=== PATIENT | female | born 1950 | race Caucasian/White ===

== ENCOUNTER → 2017-11-26 | Outpatient (CLI) | payer MEDICARE, OTHER ==
[~2017-11-26] MED LIST: ACET325 PO; ATOR40TA PO; Aspirin EC81 MG PO; BENADRYL25 MG PO; CHOL10002 PO; CLOP75 PO; FISH1000 PO; Flecainide Acet50 MG PO; LORA10 PO; LOSA50 PO; METO25 PO; MONT10T PO; Multiple Vitam1 EAC1 PO; OMEPRAZOLE MAGN20 MG PO
== END | disposition home or self-care (01) ==
LOC: LAB SHORT 11:50 → LAB EV 11:50
DX: R30.0 Dysuria (principal)
CPT/HCPCS: 87077; 87086; 87186

== ENCOUNTER → 2017-12-12 | Outpatient (CLI) | payer MEDICARE, OTHER | LOC: LAB SHORT 11:29 → LAB EV 11:29 | DX: N39.0 Urinary tract infection, site not specified (principal) | CPT/HCPCS: 87077; 87086; 87186 ==

== ENCOUNTER → 2018-11-28 | Outpatient (CLI) | payer MEDICARE, OTHER | LOC: LAB SHORT 10:42 → LAB EV 10:42 | DX: B00.9 Herpesviral infection, unspecified (principal) | CPT/HCPCS: 87529 ==

== ENCOUNTER 2019-08-09 10:33 | Day surgery (SDC) | payer MEDICARE, OTHER ==
[~2019-08-09] VITALS: Ht 170.2 cm; Wt 100.1 kg
[2019-08-09] MEDS ORDERED: ELIQUIS5 MG PO (11:30)
[2019-08-09] MEDS ORDERED: GABA300 PO (11:31)
[2019-08-09] MEDS ORDERED: VALACYCLOVIR1000 MG PO (11:32)
== END 2019-08-09 12:20 | disposition home or self-care (01) ==
LOC: ORSCSDS 10:33
PROVIDERS: Internal Medicine Gastroenterology
PROC: 0D758ZZ Dilation of Esophagus, Via Natural or Artificial Opening Endoscopic (ICD-10-PCS; principal; 2019-08-09 12:00)
PROC: 0DB58ZX Excision of Esophagus, Via Natural or Artificial Opening Endoscopic, Diagnostic (ICD-10-PCS; principal; 2019-08-09 12:00)
PROC: 0DB68ZX Excision of Stomach, Via Natural or Artificial Opening Endoscopic, Diagnostic (ICD-10-PCS; principal; 2019-08-09 12:00)
DX: R13.10 Dysphagia, unspecified (principal); K22.2 Esophageal obstruction; K21.0 Gastro-esophageal reflux disease with esophagitis; I25.10 Atherosclerotic heart disease of native coronary artery without angina pectoris; I48.0 Paroxysmal atrial fibrillation; G47.33 Obstructive sleep apnea (adult) (pediatric); I10 Essential (primary) hypertension; E78.5 Hyperlipidemia, unspecified; Z87.891 Personal history of nicotine dependence; Z79.01 Long term (current) use of anticoagulants; Z79.899 Other long term (current) drug therapy
CPT/HCPCS: 88305; 88342; J2250; J2704; J7120

== ENCOUNTER → 2020-06-10 | Outpatient (CLI) | payer MEDICARE, OTHER ==
[~2020-06-10] MED LIST changes: +ELIQUIS5 MG PO; +GABA300 PO; +VALACYCLOVIR1000 MG PO
[2020-06-10 13:06] LABS: Bacteria Rare /hpf; Red Blood Cells, Urine Not Seen /hpf (0-2); Squamous Epithelial Cells Rare /hpf (Few)
== END ==
LOC: LAB SHORT 12:30 → LAB 12:30
PROVIDERS: Physician Assistant
DX: R30.9 Painful micturition, unspecified (principal)
CPT/HCPCS: 81015; 87086

== ENCOUNTER → 2020-07-29 | Outpatient (CLI) | payer MEDICARE, OTHER ==
[2020-07-30 16:22] LABS: CORONAVIRUS (COVID19) CSH-NRL Positive (Negative)
== END ==
LOC: LAB SHORT 09:25 → LAB 09:25
PROVIDERS: Family Medicine
DX: U07.1 COVID-19 (principal)
CPT/HCPCS: U0003

== ENCOUNTER 2020-11-27 09:11 | Day surgery (SDC) | payer MEDICARE, OTHER ==
[~2020-11-27] VITALS: Wt 101.6 kg
== END 2020-11-27 11:27 | disposition home or self-care (01) ==
LOC: ORSCSDS 09:11
PROVIDERS: Internal Medicine Gastroenterology
PROC: 0DBL8ZX Excision of Transverse Colon, Via Natural or Artificial Opening Endoscopic, Diagnostic (ICD-10-PCS; principal; 2020-11-27 10:45)
PROC: 0DBP8ZX Excision of Rectum, Via Natural or Artificial Opening Endoscopic, Diagnostic (ICD-10-PCS; principal; 2020-11-27 10:45)
PROC: 0DBH8ZX Excision of Cecum, Via Natural or Artificial Opening Endoscopic, Diagnostic (ICD-10-PCS; principal; 2020-11-27 10:45)
PROC: 0DBM8ZX Excision of Descending Colon, Via Natural or Artificial Opening Endoscopic, Diagnostic (ICD-10-PCS; principal; 2020-11-27 10:45)
DX: Z12.11 Encounter for screening for malignant neoplasm of colon (principal); Z86.010 Personal history of colon polyps; D12.0 Benign neoplasm of cecum; D12.3 Benign neoplasm of transverse colon; K63.5 Polyp of colon; K62.1 Rectal polyp; K57.30 Diverticulosis of large intestine without perforation or abscess without bleeding; K64.1 Second degree hemorrhoids; K21.9 Gastro-esophageal reflux disease without esophagitis; G47.33 Obstructive sleep apnea (adult) (pediatric); I48.0 Paroxysmal atrial fibrillation; Z79.01 Long term (current) use of anticoagulants; I25.10 Atherosclerotic heart disease of native coronary artery without angina pectoris; Z79.899 Other long term (current) drug therapy; I10 Essential (primary) hypertension; E78.5 Hyperlipidemia, unspecified; J45.909 Unspecified asthma, uncomplicated
CPT/HCPCS: 82947; 88305; A9270; J2704; J7120

== ENCOUNTER → 2022-10-15 | Outpatient (CLI) | payer MEDICARE, OTHER | END | disposition home or self-care (01) | LOC: LAB SHORT 09:55 → LAB 09:55 | DX: J20.9 Acute bronchitis, unspecified (principal); J45.909 Unspecified asthma, uncomplicated | CPT/HCPCS: 87070; 87205 ==

== ENCOUNTER 2023-09-09 11:20 | Emergency (ER) | payer MEDICARE, OTHER ==
[~2023-09-09] VITALS: Ht 170.2 cm; Wt 93.9 kg
[2023-09-09] MEDS ORDERED: HYDACE10B PO (16:24)
== END 2023-09-09 17:17 | disposition home or self-care (01) ==
LOC: ER 11:20
DX: S52.352A Displaced comminuted fracture of shaft of radius, left arm, initial encounter for closed fracture (principal); Z87.891 Personal history of nicotine dependence; Z79.01 Long term (current) use of anticoagulants; Z79.899 Other long term (current) drug therapy; Z88.0 Allergy status to penicillin; Z88.1 Allergy status to other antibiotic agents; Z88.8 Allergy status to other drugs, medicaments and biological substances; Z91.048 Other nonmedicinal substance allergy status; W11.XXXA Fall on and from ladder, initial encounter
CPT/HCPCS: 25605; 70450; 73100; 73110; 96374-59; 96375-59; 96376-59; 99284-25; J1170; J1885; J3010

== ENCOUNTER 2023-09-14 10:48 | Day surgery (SDC) | payer MEDICARE, OTHER ==
[~2023-09-14] VITALS: Ht 170.2 cm; Wt 96.0 kg
[2023-09-14] VITALS (18 sets, daily range): BP systolic 132–194; BP diastolic 48–86
[~2023-09-14 10:48] MED LIST changes: +HYDACE10B PO
[2023-09-14] MEDS ORDERED: GABA300 ×2 (11:32→11:33)
[2023-09-14] MEDS ORDERED: METF500 PO (11:36)
[2023-09-14] MEDS ORDERED: ASAMANEX INH (11:38)
[2023-09-14] MEDS ORDERED: DESV50 (11:39)
[2023-09-14] MEDS ORDERED: MELATONIN5 M1 (11:40)
--- NOTE | 2023-09-14 11:49 | NUR ---
Ambulatory in Day SurgeryPre-Op teaching done. Pt verbalizes understanding. History, Chart, Medications and Allergies reviewed before start of procedure.Patient confirms NPO status and agrees with scheduled surgery. Patient States Post-Procedure ride home has been arranged.
--- NOTE | 2023-09-14 16:37 | NUR ---
PT TOLERATED APPLE SAUCE AND WATER, GAVE PO PAIN MED PER ORDER, ICE TO LEFT WRIST ABBEY WRAP, ABLE TO WIGGLE ALL FINGERS, CAP REFILL LESS THAN THREE SECONDS, RIDE WILL BE HERE AT APPROX 1730.
--- NOTE | 2023-09-14 17:29 | NUR ---
Discharge instructions reviewed with patient. Patient verbalizes understanding. Copy given to patient to take home. PT DRESSED. ABBEY WRAP C/D/I, CAP REFILL LESS THAN 3 SEC TO ALL LEFT FINGERS, FINGERS WARM AND ABLE TO WIGGLE. PT HAS SLING ON, ICE PACK TO GO HOME W/PT, HAS BEEN USING 20 MIN ON 20 MIN OFF. PT AMBULATED TO VOID. AWAITING RIDE HOME, ON THE WAY.
--- NOTE | 2023-09-14 17:54 | NUR ---
PT RIDE HERE, Discharged via wheelchair to private car for ride home.
== END 2023-09-14 22:48 | disposition home or self-care (01) ==
LOC: ORD 10:48 → ORSCMMR 10:48 → ORD 22:48
PROVIDERS: Orthopaedic Surgery Sports Medicine
PROC: 0PSJ04Z Reposition Left Radius with Internal Fixation Device, Open Approach (ICD-10-PCS; principal; 2023-09-14 12:30)
DX: S52.572A Other intraarticular fracture of lower end of left radius, initial encounter for closed fracture (principal); W11.XXXA Fall on and from ladder, initial encounter; J45.909 Unspecified asthma, uncomplicated; I48.91 Unspecified atrial fibrillation; Z79.01 Long term (current) use of anticoagulants; I10 Essential (primary) hypertension; K21.9 Gastro-esophageal reflux disease without esophagitis; E11.9 Type 2 diabetes mellitus without complications; G47.33 Obstructive sleep apnea (adult) (pediatric); Z79.899 Other long term (current) drug therapy
CPT/HCPCS: 82947; A9270; C1713; J0690; J1100; J1170; J1885; J2405; J2704; J3010; J7120

== ENCOUNTER 2024-10-23 14:07 | Inpatient (IN) | payer MEDICARE, OTHER ==
[~2024-10-23] VITALS: Ht 170.2 cm; Wt 98.6 kg
[~2024-10-23 14:07] MED LIST changes: -ALBU3IS INH; -AMIODARONE HCL200 M1 PO; -ASMANEX INH; -ATORVASTATIN CA80 M1 PO; -DESVENLAFAXINE50 MG PO; -ELIQUIS5 M2 PO; -FURO20 PO; -Glucophage 500 mg PO; -LOSARTAN POTAS100 M1 PO; -METO25ER PO; -VALACYCLOVIR 1 GM PO
[2024-10-23] MEDS ORDERED: Lactated Ringer's 1,000 ML IV SCH (15:55)
[2024-10-23] MEDS ORDERED: Cefepime HCl 2,000 MG in NS 100 ML IV ONE (15:55)
[2024-10-23 16:13] LABS: Hematocrit 29.3 % (33.0-51.0); Hemoglobin 9.9 g/dL (11.5-16.0); Mean Corpuscular HGB 31.1 pg (26.0-34.0); Mean Corpuscular HGB Conc 33.8 g/dL (31.5-36.5); Mean Corpuscular Volume 92 fL (80-100); Mean Platelet Volume 9.4 fL (9.1-12.4); NRBC ABSOLUTE 0.02 K/mm3 (0.00-0.02); NRBC Auto 0.1 /100 WBC (0.0-0.2); Platelet Count 266 K/mm3 (150-400); RDW Coefficient Variation 13.8 % (11.7-14.2); RDW Standard Deviation 47.6 fL (35.1-46.3); Red Blood Cell Count 3.18 M/mm3 (3.80-5.20); White Blood Cell Count 16.11 K/mm3 (4.00-11.30)
[2024-10-23 16:27] LABS: Magnesium, Blood 1.2 mg/dL (1.6-2.4)
[2024-10-23 16:28] LABS: Albumin, Blood 2.4 g/dL (3.4-5.0); Albumin/Globulin Ratio 0.6 (0.8-1.8); Bilirubin, Total 0.9 mg/dL (0.1-1.0); Bun/Creatinine Ratio 32.1 (12.0-20.0); Calcium, Blood 8.2 mg/dL (8.5-10.1); Creatinine, Blood 0.87 mg/dL (0.40-1.00); Globulin, Blood 4.3 g/dL (2.2-4.0); Potassium, Blood 3.3 mmol/L (3.5-5.5); Total Protein, Blood 6.7 g/dL (6.4-8.2)
[2024-10-23 16:45] LABS: BAND PERCENT MAN 13 % (0-8); BASOPHILS PERCENT MAN 0 % (0-2); EOSINOPHILS PERCENT MAN 0 % (0-6); LYMPHOCYTES ABSOLUTE MAN 1.12 K/mm3 (0.84-5.20); LYMPHOCYTES PERCENT MAN 7 % (21-46); MONOCYTES ABSOLUTE MAN 0.48 K/mm3 (0.16-1.47); MONOCYTES PERCENT MAN 3 % (4-13); NEUTROPHILS ABSOLUTE MAN 14.49 K/mm3 (1.96-9.15); SEG NEUTROPHILS PERCENT MAN 77 % (41-73); TOTAL CELLS COUNTED 100
[2024-10-23] MEDS ORDERED: Magnesium Hydroxide Conc 10 ML UDC PO PRN (17:25)
[2024-10-23] MEDS ORDERED: FLU VACC TS2024-25(6MOS UP)/PF 45 MCG/0.5 ML SYRINGE IM SCH (17:25)
[2024-10-23] MEDS ORDERED: Ondansetron HCl 2 MG / ML 2ML Vial IV PRN (17:25)
[2024-10-23] MEDS ORDERED: NS 1,000 ML IV SCH (17:25)
[2024-10-23] MEDS ORDERED: Albuterol 2.5 MG/3 ML VIAL INH SCH (17:35)
[2024-10-23] MEDS ORDERED: ALBU3IS INH (17:36)
[2024-10-23] MEDS ORDERED: Potassium Phosphate Dibasic 20 MM in Dextrose 5% 500 ML IV STA (17:36)
[2024-10-23] MEDS ORDERED: AMIODARONE HCL200 M1 PO (17:37)
[2024-10-23] MEDS ORDERED: ELIQUIS5 M2 PO (17:38)
[2024-10-23] MEDS ORDERED: ATORVASTATIN CA80 M1 PO (17:39)
[2024-10-23] MEDS ORDERED: CLOP75 PO (17:40)
[2024-10-23] MEDS ORDERED: Mometasone Furoate Inhaler 220 mcg 14 ACT INH SCH (17:40)
[2024-10-23] MEDS ORDERED: DESVENLAFAXINE50 MG PO (17:41)
[2024-10-23] MEDS ORDERED: FURO20 PO (17:42)
[2024-10-23] MEDS ORDERED: GABA300 PO (17:43)
[2024-10-23] MEDS ORDERED: LOSARTAN POTAS100 M1 PO (17:43)
[2024-10-23] MEDS ORDERED: Magnesium Sulf 2 GM/Water 50ML 50 ML IV ONE (17:45)
[2024-10-23] MEDS ORDERED: Glucophage 500 mg PO (17:45)
[2024-10-23] MEDS ORDERED: METO25ER PO (17:46)
[2024-10-23] MEDS ORDERED: ASMANEX INH (17:47)
[2024-10-23] MEDS ORDERED: MONT10T PO (17:48)
[2024-10-23] MEDS ORDERED: OMEP20ER PO (17:49)
[2024-10-23] MEDS ORDERED: VALACYCLOVIR 1 GM PO (17:50)
[2024-10-23] MEDS ORDERED: Azithromycin 500 MG in NS 250 ML IV SCH (18:00)
[2024-10-23] MEDS ORDERED: Acetaminophen 325 MG TABLET PO PRN (18:05)
[2024-10-23] MEDS ORDERED: HYDROcodone 5-APAP 325 TAB PO PRN (18:10)
[2024-10-23] MEDS ORDERED: Metoprolol Succinate 25 MG TABCR PO ONE (18:10)
--- NOTE | 2024-10-23 20:15 | NUR ---
pt arrived to floor, alert and oriented. able to answer questions. b/p and heart rate elevated. pt made comfortable, tele monitor placed, will continue to monitor
[2024-10-23] MEDS ORDERED: NS 250 ML IV ONE (20:51)
[2024-10-23] MEDS ORDERED: Apixaban 5 MG Tab PO SCH (21:00)
[2024-10-23] MEDS ORDERED: Montelukast Sodium 10 MG Tab PO SCH (21:00)
[2024-10-23] MEDS ORDERED: Gabapentin 300 MG Cap PO SCH (21:00)
[2024-10-23] MEDS ORDERED: Metoprolol Succinate 25 MG TABCR PO SCH (21:00)
[2024-10-23] MEDS ORDERED: Docusate Sodium 100 MG Cap PO SCH (21:00)
[2024-10-23] MEDS ORDERED: Famotidine 10 MG/ML 2ML Vial IV SCH (21:00)
--- NOTE | 2024-10-23 21:25 | NUR ---
dr. franco called r/t inability to decrease b/p and heart rate. pt also with lactic of 2.9. pt also with productive cough. states he will look at chart and place orders
[2024-10-23] MEDS ORDERED: Labetalol HCL 5 MG/ML 4ML Injection (Single Dose) IV PRN (23:05)
[2024-10-23] MEDS ORDERED: Benzonatate 100 MG Cap PO PRN (23:55)
[2024-10-24] VITALS (7 sets, daily range): BP systolic 117–167; BP diastolic 60–110
[2024-10-24] MEDS ORDERED: CefTRIAXone Sodium 2,000 MG in NS 100 ML IV SCH (02:00)
[2024-10-24 03:50] LABS: Hematocrit 27.8 % (33.0-51.0); Hemoglobin 9.2 g/dL (11.5-16.0); Mean Corpuscular HGB 30.7 pg (26.0-34.0); Mean Corpuscular HGB Conc 33.1 g/dL (31.5-36.5); Mean Corpuscular Volume 93 fL (80-100); Mean Platelet Volume 9.2 fL (9.1-12.4); Platelet Count 258 K/mm3 (150-400); RDW Coefficient Variation 14.1 % (11.7-14.2); RDW Standard Deviation 48.3 fL (35.1-46.3)
[2024-10-24 04:09] LABS: Albumin, Blood 2.1 g/dL (3.4-5.0); Albumin/Globulin Ratio 0.5 (0.8-1.8); Bilirubin, Total 0.5 mg/dL (0.1-1.0); Bun/Creatinine Ratio 30.5 (12.0-20.0); Calcium, Blood 7.9 mg/dL (8.5-10.1); Creatinine, Blood 0.66 mg/dL (0.40-1.00); Globulin, Blood 4.3 g/dL (2.2-4.0); Potassium, Blood 3.4 mmol/L (3.5-5.5); Total Protein, Blood 6.4 g/dL (6.4-8.2)
[2024-10-24 04:19] LABS: BAND PERCENT MAN 10 % (0-8); BASOPHILS PERCENT MAN 0 % (0-2); EOSINOPHILS PERCENT MAN 0 % (0-6); LYMPHOCYTES ABSOLUTE MAN 0.52 K/mm3 (0.84-5.20); LYMPHOCYTES PERCENT MAN 4 % (21-46); MONOCYTES ABSOLUTE MAN 0.52 K/mm3 (0.16-1.47); MONOCYTES PERCENT MAN 4 % (4-13); NEUTROPHILS ABSOLUTE MAN 12.05 K/mm3 (1.96-9.15); SEG NEUTROPHILS PERCENT MAN 82 % (41-73); TOTAL CELLS COUNTED 100
--- NOTE | 2024-10-24 05:35 | NUR ---
PT RESTED COMFORTABLY AFTER PRN TESSALON MOHIT, B/P WNL POST LABATILAL. PT STATES SHE IS FEELING MUCH BETTER, DENIES PIAN. BED ALARM IN PLACE. PT AWARE OF NEED TO CALL, ORIENTED AND SELF AWARE. CALL LIGHT IN REACH, NO S/S OF DISTRESS NOTED
[2024-10-24] MEDS ORDERED: Enoxaparin 40 MG/0.4 ML SYR SC SCH (09:00)
[2024-10-24] MEDS ORDERED: Clopidogrel Bisulfate 75 MG Tab PO SCH (09:00)
[2024-10-24] MEDS ORDERED: Venlafaxine HCl 75 MG CapCR PO SCH (09:00)
[2024-10-24] MEDS ORDERED: ValACYClovir HCL 500 MG Tab PO SCH (09:00)
[2024-10-24] MEDS ORDERED: Atorvastatin 40 MG Tab PO SCH (09:00)
[2024-10-24] MEDS ORDERED: Potassium Chloride 40 MEQ in NS 250 ML IV SCH (12:00)
[2024-10-24] MEDS ORDERED: Amiodarone HCl 200 MG Tab PO SCH (13:45)
[2024-10-24] MEDS ORDERED: Albuterol 2.5 MG/3 ML VIAL INH SCH (17:35)
--- NOTE | 2024-10-24 17:56 | NUR ---
End of Shift Pt A&O x4. VSS. Spo2 > 92% on 2L NC upon care assumption, titrated slowly t/o shift, now on 7L hi-cee NC for spo2 > 92%. Pt w/ cough. Awaiting sputum collection when pt able to provide specimen. Monitor showing afib, HR 110s-130s this AM. aware. Pt HR then 140s-150s this afternoon. w/ order for pt resume home amiodarone, see order. NS gtt & IV abx infusing per orders. Pt 1 person assist to chair or BSC. Pt family at bedside intermittently t/o shift.
[2024-10-25] VITALS (8 sets, daily range): BP systolic 144–157; BP diastolic 90–121
[2024-10-25 04:56] LABS: Hematocrit 24.7 % (33.0-51.0); Hemoglobin 8.3 g/dL (11.5-16.0); Mean Corpuscular HGB 31.1 pg (26.0-34.0); Mean Corpuscular HGB Conc 33.6 g/dL (31.5-36.5); Mean Corpuscular Volume 93 fL (80-100); Mean Platelet Volume 9.7 fL (9.1-12.4); Platelet Count 259 K/mm3 (150-400); RDW Coefficient Variation 14.3 % (11.7-14.2); RDW Standard Deviation 48.3 fL (35.1-46.3); Red Blood Cell Count 2.67 M/mm3 (3.80-5.20); White Blood Cell Count 15.39 K/mm3 (4.00-11.30)
[2024-10-25 06:06] LABS: BAND PERCENT MAN 3 % (0-8); BASOPHILS PERCENT MAN 0 % (0-2); EOSINOPHILS PERCENT MAN 0 % (0-6); LYMPHOCYTES ABSOLUTE MAN 1.38 K/mm3 (0.84-5.20); LYMPHOCYTES PERCENT MAN 9 % (21-46); METAMYELOCYTE ABSOLUTE MAN 0.15 K/mm3 (0.00-0.00); METAMYELOCYTE PERCENT MAN 1 % (0-0); MONOCYTES ABSOLUTE MAN 0.61 K/mm3 (0.16-1.47); MONOCYTES PERCENT MAN 4 % (4-13); MYELOCYTE ABSOLUTE MAN 0.15 K/mm3 (0.00-0.00); MYELOCYTE PERCENT MAN 1 % (0-0); NEUTROPHILS ABSOLUTE MAN 13.08 K/mm3 (1.96-9.15); SEG NEUTROPHILS PERCENT MAN 82 % (41-73); TOTAL CELLS COUNTED 100
--- NOTE | 2024-10-25 06:14 | NUR ---
PT RESTED THROUGH OUT THE NIGHT, DENIES PAIN. PT USING OWN CPAP, O2 SATS DECREASED TO 83% AT TIMES, PT NOTED TO BE SLEEPING WITH HER MOUTH OPEN. O2 AT 5ITERS, PT GIVEN FLUTTER VALVE AND INCENTIVE SPIROMETER, TEACHING SUCCESSFUL, CALL LIGHT IN REACH
[2024-10-25 06:40] LABS: Albumin/Globulin Ratio 0.5 (0.8-1.8); Bilirubin, Total 0.7 mg/dL (0.1-1.0); Bun/Creatinine Ratio 25.6 (12.0-20.0); Calcium, Blood 8.2 mg/dL (8.5-10.1); Creatinine, Blood 0.63 mg/dL (0.40-1.00); Globulin, Blood 4.3 g/dL (2.2-4.0); Potassium, Blood 3.9 mmol/L (3.5-5.5); Total Protein, Blood 6.3 g/dL (6.4-8.2)
[2024-10-25] MEDS ORDERED: Amiodarone HCl 200 MG Tab PO SCH (09:00)
[2024-10-25] MEDS ORDERED: Vancomycin HCL 2,000 MG in NS 500 ML IV ONE (14:30)
[2024-10-25] MEDS ORDERED: Furosemide 20 MG Tab PO SCH (14:40)
[2024-10-25] MEDS ORDERED: MethylPREDNISolone Sod Succ 125 MG Vial IV SCH (16:00)
[2024-10-25] MEDS ORDERED: Aztreonam 2,000 MG in NS 100 ML IV SCH (16:00)
[2024-10-25 16:15] LABS: Adenovirus Not Detected (NOT DETECT); Coronavirus 229E Not Detected (NOT DETECT); Coronavirus HKU1 Not Detected (NOT DETECT); Coronavirus NL63 Not Detected (NOT DETECT); Coronavirus OC43 Not Detected (NOT DETECT); Human Metapneumovirus Not Detected (NOT DETECT); Human Rhinovirus/Enterovirus Not Detected (NOT DETECT); Influenza A/2009-H1 Not Detected (NOT DETECT); Influenza A/H1 Not Detected (NOT DETECT); Influenza A/H3 Not Detected (NOT DETECT); Influenza B Not Detected (NOT DETECT); Parainfluenza Virus 1 Not Detected (NOT DETECT); Parainfluenza Virus 2 Not Detected (NOT DETECT); Parainfluenza Virus 3 Not Detected (NOT DETECT); SARS-Cov-2 (COVID-19), BioFire Not Detected (NOT DETECT)
[2024-10-25 16:16] LABS: Bordetella pertussis Not Detected (NOT DETECT); Chlamydophila pneumoniae Not Detected (NOT DETECT); Mycoplasma pneumoniae Not Detected (NOT DETECT); Parainfluenza Virus 4 Not Detected (NOT DETECT); Respiratory Syncytial Virus Not Detected (NOT DETECT)
[2024-10-25 18:01] LABS: Magnesium, Blood 1.6 mg/dL (1.6-2.4); Phosphorus, Blood 2.4 mg/dL (2.5-4.9)
--- NOTE | 2024-10-25 18:49 | NUR ---
PT'S OXYGEN DEMAND HAD BEEN INCREASING SINCE THIS AM. STARTED OFF THE AM WITH HIGH FLOW O2 15L WITH OXYMASK 15L ADDED PRN. RESP RX MAL STARTED PT ON AIRVO 10 AT 40L/FI02 55%, INCREASED TO 80%. NOTIFIED DR CA OF PT'S INCREASE O2 DEMEND AROUND 1500, ORDER FOR PULM CONSULT. DR ADINA RAMÍREZ, CAME SHORTLY TO EVAL PT, NEW ORDERS TO FOLLOW. STARTED PT ON AIRVO 60 AND PT STEADILY SATS 92-94%, PT FINALLY ABLE TO CLOSE EYES AND REST, RR REMAINS 30-34.
--- NOTE | 2024-10-25 18:56 | NUR ---
SUMMARY- PT A/OX4, STAYING IN BED TODAY BECAUSE OF OXYGEN DEMAND/DYSPNEA. STARTED OUT THIS AM WITH HIGH FLOW OXYGEN 15L AND PRN OXY MASK, ADVANCED TO AVIVO 60 CURRENTLY, 12/ 40%FIO2. RR 32, LUNGS SOUND CLEAR, NO CRACKLES, OCC UPPER AIRWAY WHEEZE. OCC COUGH, ENC FLUTTER AND I.S. DR HOLDEN (PULM) CONSULTED TODAY FOR DETERIORATING PULM STATUS. NEW ORDERS RECEIVED PUREWICK IN USE FOR INCONT VOID. PT TOLERATING FOOD AND FLUIDS. WILL REPORT TO NOC RN
[2024-10-25] MEDS ORDERED: Furosemide 10 MG / ML 2ML Vial IV ONE (20:45)
[2024-10-25] MEDS ORDERED: Mag Sulfate 1 GM/D5% 100ML 100 ML IV STA (20:45)
[2024-10-25 22:00] LABS: Base Excess Venous -3.4 mmol/L; Bicarbonate Venous 21.5 mmol/L (24.0-30.0); PCO2 Venous 46.4 mmHg (38-42)
[2024-10-26] VITALS (11 sets, daily range): BP systolic 138–179; BP diastolic 88–125
[2024-10-26 03:49] LABS: Hematocrit 24.5 % (33.0-51.0); Hemoglobin 8.2 g/dL (11.5-16.0); Mean Corpuscular HGB 30.7 pg (26.0-34.0); Mean Corpuscular HGB Conc 33.5 g/dL (31.5-36.5); Mean Corpuscular Volume 92 fL (80-100); Mean Platelet Volume 9.9 fL (9.1-12.4); NRBC ABSOLUTE 0.02 K/mm3 (0.00-0.02); NRBC Auto 0.2 /100 WBC (0.0-0.2); Platelet Count 271 K/mm3 (150-400); RDW Coefficient Variation 14.6 % (11.7-14.2); RDW Standard Deviation 49.1 fL (35.1-46.3); Red Blood Cell Count 2.67 M/mm3 (3.80-5.20); White Blood Cell Count 11.69 K/mm3 (4.00-11.30)
[2024-10-26] MEDS ORDERED: Vancomycin HCL 1,250 MG in NS 250 ML IV SCH (04:00)
[2024-10-26 04:07] LABS: Albumin, Blood 1.9 g/dL (3.4-5.0); Albumin/Globulin Ratio 0.4 (0.8-1.8); Bilirubin, Total 0.6 mg/dL (0.1-1.0); Bun/Creatinine Ratio 31.3 (12.0-20.0); Calcium, Blood 8.4 mg/dL (8.5-10.1); Creatinine, Blood 0.58 mg/dL (0.40-1.00); Globulin, Blood 4.5 g/dL (2.2-4.0); Potassium, Blood 4.1 mmol/L (3.5-5.5); Total Protein, Blood 6.4 g/dL (6.4-8.2)
[2024-10-26 04:11] LABS: BAND PERCENT MAN 3 % (0-8); BASOPHILS PERCENT MAN 0 % (0-2); EOSINOPHILS ABSOLUTE MAN 0.11 K/mm3 (0.00-0.68); EOSINOPHILS PERCENT MAN 1 % (0-6); LYMPHOCYTES PERCENT MAN 6 % (21-46); MONOCYTES ABSOLUTE MAN 0.11 K/mm3 (0.16-1.47); MONOCYTES PERCENT MAN 1 % (4-13); MYELOCYTE ABSOLUTE MAN 0.35 K/mm3 (0.00-0.00); MYELOCYTE PERCENT MAN 3 % (0-0); SEG NEUTROPHILS PERCENT MAN 86 % (41-73); TOTAL CELLS COUNTED 100
--- NOTE | 2024-10-26 06:00 | NUR ---
SHIFT SUMMARY PT IS SOMNUMENT BUT EASILY AWAKENS TO VERBAL AND PHYSICAL STIMULI, PT IS ORIENTATED TO SELF AND THE YEAR, PT WAS NOT ABLE TO STATE WHERE SHE IS OR WHAT KIND OF BUILDING SHE IS IN, PT OBEYS COMMANDS, MOVING ALL EXTREMITIES EQUALLY, REPOSITIONING SELF IN BED, PT DID WAKE UP A COUPLE TIME TONIGHT BEING FORGETFUL THAT SHE HAD A PURWICK OR RIPPING OFF HER BIPAP/PT EASILY REORIENTED AND COMPLIANT WITH CARE. CONTINUOUS SPO2, SPO2 GREATER 90% ON THE BIPAP 08/05/40%, RR RATE 20-30 S T/O THE NIGHT, PT HAVING FREQUENT NONPRODUCTIVE COUGH. CONTINUOUS TELE MONITORING, AFIB WITH HR AVERAGING 120 S T/O THIS SHIFT/ OCCASIONALLY TOUCHING 140 S BUT NOT SUSTAINING, BP ELEVATED T/O THIS SHIFT REQUIRING A LABATALOL PUSH, SBP 140-170 S, PT DENIES CHEST P/P, STRONG PULSES PRESENT T/O. BOWEL TONES PRESENT IN ALL 4Q, PT REFUSED THE COLACE SAYING SHE DOESN'T LIKE IT AND PREFERS SENNA, PT DENIES FEELINGS OF CONSTIPATION, PT ATTEMPTED TO HAVE A BM THIS SHIFT ON THE BEDPAN BUT WAS UNSUCCESSFUL/LAST CHARTED BM 10/23/24. PT USING PUREWICK THAT IS CONNECTED TO LOW CONTINUOUS SUCTION, URINE IS YELLOW IN COLOR. REDNESS NOTED TO BRIDGE OF THE NOSE DUE TO BIPAP/ RT CALLED FOR GECKO TO BE APPLIED, PT IS DIAPHORETIC. PT REPORTS PAIN WHILE COUGHING. BED LOWEST POSITION, CALL LIGHT IN REACH, AWAITING TO GIVE REPORT TO ONCOMING RN.
[2024-10-26] MEDS ORDERED: Metoprolol Tartrate 1 MG/ML 5 ML VIAL IV ONE (17:45)
--- NOTE | 2024-10-26 18:05 | NUR ---
PT SUMMARY PT TRANSFERRED TO PCU3 FROM PCU 10. NO ACUTE CHANGE FOR THE SHIFT, PT VERBALIZED IMPROVEMENT FOM YESTERDAY REPEAT CHEST XRAY SHOWS IMPROVEMENT, PT STILL ON AIRVO SETTINGS DECREASED TO 40L/40%FIO2, HOME CPAP SET UP AT THE BEDSIDE TO TRIAL TONIGHT. VITALS HRR AFIB 120-140'S GIVEN ONE TIME DOSE OF IV METOPROLOL 5MG HR NOW 115-120'S, SBP 130-150'S, SATS KEPT ABOVE 90% ON AIRVO, AFEBRILE. PT HAS BEEN HAVIN DRY NON PRODUCTIVE COUGH TESSALON RITA IVEN TWICE FOR THE SHIFT. PT ABLE TO AMBULATE VIA WALKER FROM BED TO CHAIR/BSC, SBA. PUREWICK IN PLACE YELLOW URINE DRAINING VIA GRAVITY. FAMILY CAME IN TO VISIT ABLE TO DISCUSS PLAN OF CARE. PT SITTING AT THE SIDE OF THE BED AT THIS TIME CALL LIGHTS IN REACH WILL REPORT TO ONCOMING SHIFT
[2024-10-27 04:21] VITALS: BP 148/96
[2024-10-27 04:38] LABS: Hematocrit 23.4 % (33.0-51.0); Mean Corpuscular HGB 31.1 pg (26.0-34.0); Mean Corpuscular HGB Conc 34.2 g/dL (31.5-36.5); Mean Corpuscular Volume 91 fL (80-100); Mean Platelet Volume 9.9 fL (9.1-12.4); NRBC ABSOLUTE 0.06 K/mm3 (0.00-0.02); NRBC Auto 0.5 /100 WBC (0.0-0.2); Platelet Count 319 K/mm3 (150-400); RDW Coefficient Variation 14.7 % (11.7-14.2); RDW Standard Deviation 48.7 fL (35.1-46.3); Red Blood Cell Count 2.57 M/mm3 (3.80-5.20); White Blood Cell Count 11.02 K/mm3 (4.00-11.30)
[2024-10-27 05:09] LABS: Albumin, Blood 2.1 g/dL (3.4-5.0); Albumin/Globulin Ratio 0.5 (0.8-1.8); Bilirubin, Total 0.7 mg/dL (0.1-1.0); Bun/Creatinine Ratio 44.3 (12.0-20.0); Calcium, Blood 8.5 mg/dL (8.5-10.1); Creatinine, Blood 0.66 mg/dL (0.40-1.00); Globulin, Blood 4.3 g/dL (2.2-4.0); Potassium, Blood 3.9 mmol/L (3.5-5.5); Total Protein, Blood 6.4 g/dL (6.4-8.2)
[2024-10-27 05:11] LABS: Vancomycin, Trough 14.1 ug/mL (5.0-10.0)
[2024-10-27 05:35] LABS: BAND PERCENT MAN 1 % (0-8); BASOPHILS PERCENT MAN 0 % (0-2); EOSINOPHILS PERCENT MAN 0 % (0-6); LYMPHOCYTES ABSOLUTE MAN 0.55 K/mm3 (0.84-5.20); LYMPHOCYTES PERCENT MAN 5 % (21-46); METAMYELOCYTE ABSOLUTE MAN 0.77 K/mm3 (0.00-0.00); METAMYELOCYTE PERCENT MAN 7 % (0-0); MONOCYTES ABSOLUTE MAN 0.33 K/mm3 (0.16-1.47); MONOCYTES PERCENT MAN 3 % (4-13); NEUTROPHILS ABSOLUTE MAN 9.36 K/mm3 (1.96-9.15); SEG NEUTROPHILS PERCENT MAN 84 % (41-73); TOTAL CELLS COUNTED 100
--- NOTE | 2024-10-27 06:27 | NUR ---
SHIFT SUMMARY PT IS A&O X4, PT OBEYS COMMANDS, MOVING ALL EXTREMITIES EQUALLY, REPOSITIONING SELF IN BED, AMBULATED SBA WITH FWW TO BRP, CALLS APPROPRIATELY AND ABLE TO MAKE NEEDS KNOWN. CONTINUOUS SPO2, SPO2 GREATER 90% ON HOME CPAP T/O MOST OF THIS SHIFT, RR RATE 20 S T/O THE NIGHT, PT HAVING OCCASIONAL NONPRODUCTIVE COUGH. CONTINUOUS TELE MONITORING, AFIB WITH HR AVERAGING 110-120 S T/O THIS SHIFT, BP ELEVATED T/O THIS SHIFT NOT REQUIRING ANY PRN MEDICATION, PT DENIES CHEST P/P, STRONG PULSES PRESENT T/O. BOWEL TONES PRESENT IN ALL 4Q, PT REFUSED THE COLACE SAYING SHE DOESN'T LIKE IT AND PREFERS SENNA, PT DENIES FEELINGS OF CONSTIPATION PT USING PUREWICK T/O THE NIGHT THAT IS CONNECTED TO LOW CONTINUOUS SUCTION, URINE IS YELLOW IN COLOR, PT DICONNECTED THIS AM TO GO VOID IN TO THE BRP PER PT REQUEST . PT IS LESS DIAPHORETIC THAN PREVIOUS SHIFT. PT REPORTS PAIN IN HER THROAT/MEDICATED PER ORDERS. BED LOWEST POSITION, CALL LIGHT IN REACH, AWAITING TO GIVE REPORT TO ONCOMING RN.
[2024-10-27 07:43] VITALS: BP 150/113
[2024-10-27] MEDS ORDERED: MethylPREDNISolone Sod Succ 40 MG VIAL IV SCH (08:00)
[2024-10-27] MEDS ORDERED: Lactobacil 2-S.Thermo-Bifido 1 1 Cap PO SCH (09:00)
[2024-10-27] MEDS ORDERED: Metoprolol Succinate 25 MG TABCR PO ONE (10:10)
[2024-10-27 11:16] VITALS: BP 157/101
[2024-10-27 15:42] VITALS: BP 155/118
--- NOTE | 2024-10-27 17:27 | NUR ---
SHIFT SUMMARY NO ACUTE CHANGES THIS SHIFT. PT A&OX4, ABLE TO MAKE NEEDS KNOWN. SP02>90% on 3L HIFLO. DRY HARSH COUGH, TESSLON PEARLS THIS SHIFT X1. TELEMETRY SHOWS AFBI 110'S-130'S. METOPROLOL INCREASED THIS SHIFT, SEE EMAR. PT UP TO BSC TO VOID. LOOSE BM THIS SHIFT. ABX INFUSED PER EMAR. IN ROOM MOST OF SHIFT. PT CHANGED TO MED/TELE STATUS. CURRENTLY SITTING IN RECLINER, EATING DINNER. CALL LIGHT IN REACH.
[2024-10-27 20:36] VITALS: BP 175/117
[2024-10-27] MEDS ORDERED: Metoprolol Succinate 25 MG TABCR PO SCH (21:00)
[2024-10-27] MEDS ORDERED: CefTRIAXone Sodium 2,000 MG in NS 100 ML IV SCH (21:00)
[2024-10-27] MEDS ORDERED: Sennosides 8.6 MG Tab PO SCH (21:00)
[2024-10-28 00:07] VITALS: BP 135/111
[2024-10-28 00:43] VITALS: BP 143/113
--- NOTE | 2024-10-28 01:09 | NUR ---
SHIFT SUMMARY NEURO: WNL, GENERALIZED WEAKNESS CARDIAC: AFIB UP TO 125. HTN WITH NARROW PULSE PRESSURES. LUNGS: COARSE PT FELL. BED ALARM PLACED
[2024-10-28 03:23] VITALS: BP 165/120
[2024-10-28 06:12] LABS: Hematocrit 22.4 % (33.0-51.0); Hemoglobin 7.5 g/dL (11.5-16.0); Mean Corpuscular HGB 31.3 pg (26.0-34.0); Mean Corpuscular HGB Conc 33.5 g/dL (31.5-36.5); Mean Corpuscular Volume 93 fL (80-100); Mean Platelet Volume 10.1 fL (9.1-12.4); NRBC ABSOLUTE 0.16 K/mm3 (0.00-0.02); NRBC Auto 1.2 /100 WBC (0.0-0.2); Platelet Count 325 K/mm3 (150-400); RDW Coefficient Variation 15.1 % (11.7-14.2); White Blood Cell Count 12.83 K/mm3 (4.00-11.30)
[2024-10-28 06:32] LABS: Magnesium, Blood 1.4 mg/dL (1.6-2.4)
[2024-10-28 07:12] LABS: BAND PERCENT MAN 3 % (0-8); BASOPHILS PERCENT MAN 0 % (0-2); EOSINOPHILS PERCENT MAN 0 % (0-6); LYMPHOCYTES ABSOLUTE MAN 1.92 K/mm3 (0.84-5.20); LYMPHOCYTES PERCENT MAN 15 % (21-46); METAMYELOCYTE ABSOLUTE MAN 0.64 K/mm3 (0.00-0.00); METAMYELOCYTE PERCENT MAN 5 % (0-0); MONOCYTES ABSOLUTE MAN 0.51 K/mm3 (0.16-1.47); MONOCYTES PERCENT MAN 4 % (4-13); MYELOCYTE ABSOLUTE MAN 0.25 K/mm3 (0.00-0.00); MYELOCYTE PERCENT MAN 2 % (0-0); NEUTROPHILS ABSOLUTE MAN 9.49 K/mm3 (1.96-9.15); SEG NEUTROPHILS PERCENT MAN 71 % (41-73); TOTAL CELLS COUNTED 100
[2024-10-28 08:30] VITALS: BP 147/82
[2024-10-28 11:53] LABS: Hematocrit 24.8 % (33.0-51.0); Hemoglobin 8.3 g/dL (11.5-16.0); Mean Corpuscular HGB 31.1 pg (26.0-34.0); Mean Corpuscular HGB Conc 33.5 g/dL (31.5-36.5); Mean Corpuscular Volume 93 fL (80-100); Mean Platelet Volume 10.5 fL (9.1-12.4); NRBC Auto 1.1 /100 WBC (0.0-0.2); Platelet Count 390 K/mm3 (150-400); RDW Coefficient Variation 15.1 % (11.7-14.2); RDW Standard Deviation 50.4 fL (35.1-46.3); Red Blood Cell Count 2.67 M/mm3 (3.80-5.20); White Blood Cell Count 18.95 K/mm3 (4.00-11.30)
[2024-10-28 12:35] LABS: BAND PERCENT MAN 1 % (0-8); BASOPHILS PERCENT MAN 0 % (0-2); EOSINOPHILS PERCENT MAN 0 % (0-6); LYMPHOCYTES PERCENT MAN 9 % (21-46); METAMYELOCYTE ABSOLUTE MAN 0.56 K/mm3 (0.00-0.00); METAMYELOCYTE PERCENT MAN 3 % (0-0); MONOCYTES ABSOLUTE MAN 0.75 K/mm3 (0.16-1.47); MONOCYTES PERCENT MAN 4 % (4-13); MYELOCYTE ABSOLUTE MAN 0.37 K/mm3 (0.00-0.00); MYELOCYTE PERCENT MAN 2 % (0-0); NEUTROPHILS ABSOLUTE MAN 15.53 K/mm3 (1.96-9.15); SEG NEUTROPHILS PERCENT MAN 81 % (41-73); TOTAL CELLS COUNTED 100
[2024-10-28] MEDS ORDERED: Pantoprazole Sodium 40 MG Injection IV SCH (16:30)
--- NOTE | 2024-10-28 17:06 | NUR ---
SHIFT NOTE: PT A/OX4 ABLE TO MAKE HER NEEDS KNOWN. SHE HAS BEEN EDUCATED ON THE NEED TO USE THE CALL LIGHT SHE IMPUSLIVELY GETS UP WHEN SHE NEEDS TO USE THE BATHROOM. PATIENT STATED UNDERSTANDING OF CALLING FOR STAFF FOR ASSISTANCE FOR SAFETY. SHE REQUIRES 1P ASSISTANCE FROM STAFF FOR ADLS. SHE REMAINS IN AFIBS WITH RATES 110-130. SHE DENIES CHEST PAIN/PRESSURE. SHE IS ON RA WHEN AWAKE WITH NO SOB. SHE WEARS HOME CPAP WHEN SLEEPING. AT BEDSIDE T/O DAY AND UPDATED ON PLAN OF CARE. CARE CONTINUES
[2024-10-28 19:40] VITALS: BP 155/103
[2024-10-28] MEDS ORDERED: Insulin Regular 100 UNIT/ML 10ML Vial SC SCH (22:13)
[2024-10-28 23:30] VITALS: BP 149/108
[2024-10-29] VITALS (7 sets, daily range): BP systolic 141–178; BP diastolic 91–119
[2024-10-29] MEDS ORDERED: Albuterol 2.5 MG/3 ML VIAL INH SCH (01:11)
--- NOTE | 2024-10-29 02:33 | NUR ---
SHIFT SUMMARY PRN LABETALOL GIVEN. OTHERWISE UNEVENTFUL.
[2024-10-29 04:01] LABS: Hematocrit 23.9 % (33.0-51.0); Hemoglobin 7.8 g/dL (11.5-16.0); Mean Corpuscular HGB 30.8 pg (26.0-34.0); Mean Corpuscular HGB Conc 32.6 g/dL (31.5-36.5); Mean Corpuscular Volume 95 fL (80-100); Mean Platelet Volume 10.3 fL (9.1-12.4); NRBC ABSOLUTE 0.28 K/mm3 (0.00-0.02); Platelet Count 398 K/mm3 (150-400); RDW Coefficient Variation 15.2 % (11.7-14.2); RDW Standard Deviation 51.7 fL (35.1-46.3); Red Blood Cell Count 2.53 M/mm3 (3.80-5.20); White Blood Cell Count 14.11 K/mm3 (4.00-11.30)
[2024-10-29 04:24] LABS: Albumin, Blood 2.2 g/dL (3.4-5.0); Albumin/Globulin Ratio 0.6 (0.8-1.8); Bilirubin, Total 0.4 mg/dL (0.1-1.0); Bun/Creatinine Ratio 30.7 (12.0-20.0); Calcium, Blood 8.3 mg/dL (8.5-10.1); Creatinine, Blood 0.69 mg/dL (0.40-1.00); Globulin, Blood 3.8 g/dL (2.2-4.0); Potassium, Blood 3.5 mmol/L (3.5-5.5)
[2024-10-29 04:31] LABS: BAND PERCENT MAN 2 % (0-8); BASOPHILS PERCENT MAN 0 % (0-2); EOSINOPHILS PERCENT MAN 0 % (0-6); LYMPHOCYTES ABSOLUTE MAN 0.98 K/mm3 (0.84-5.20); LYMPHOCYTES PERCENT MAN 7 % (21-46); METAMYELOCYTE ABSOLUTE MAN 0.56 K/mm3 (0.00-0.00); METAMYELOCYTE PERCENT MAN 4 % (0-0); MONOCYTES ABSOLUTE MAN 0.84 K/mm3 (0.16-1.47); MONOCYTES PERCENT MAN 6 % (4-13); MYELOCYTE ABSOLUTE MAN 0.28 K/mm3 (0.00-0.00); MYELOCYTE PERCENT MAN 2 % (0-0); NEUTROPHILS ABSOLUTE MAN 11.42 K/mm3 (1.96-9.15); SEG NEUTROPHILS PERCENT MAN 79 % (41-73); TOTAL CELLS COUNTED 100
[2024-10-29] MEDS ORDERED: Potassium Chl 20MEQ/Water100ML 100 ML IV STA (06:36)
[2024-10-29] MEDS ORDERED: Potassium Chloride 20 MEQ in NS 90 ML IV ONE (06:45)
[2024-10-29] MEDS ORDERED: NS 250 ML IV PRN (07:40)
[2024-10-29] MEDS ORDERED: Omeprazole 20 MG CapCR PO SCH (16:30)
--- NOTE | 2024-10-29 17:33 | NUR ---
PT ARRIVE TO ROOM AT 143O NO DISTRESS NOTED AND INDEPENDENT IN ROOM. PT IS ABLE TO MAKE NEEDS KNOWN AND WAS SETTLED IN. CALL LIGHT IS WITHIN REACH AND WILL CONTINUE TO MONITOR.
[2024-10-29] MEDS ORDERED: Metoprolol Succinate 50 MG TABCR PO SCH (21:00)
[2024-10-29] MEDS ORDERED: Apixaban 5 MG Tab PO SCH (21:00)
[2024-10-30] VITALS (8 sets, daily range): BP systolic 151–172; BP diastolic 77–106
--- NOTE | 2024-10-30 03:24 | NUR ---
SAVINGS TELLER SUMMARY: ADMITTED FOR SEPSIS SECOND TO PNEUMONIA. A&O X4, MAKES NEEDS KNOWN. NO RESPIRATORY DISTRESS NOTED. CPAP IN PLACE AT HS. RA DURING DAY. TELE IN PLACE: SR IN 70'S. NO ADVERSE SIDE EFFECTS TO IV ABX. INDEPENDENT WITH BED MOBILITY. SBA TRANSFER TO BS. CALL LIGHT IN REACH. CARES ONGOING ORDERED.
[2024-10-30 03:30] LABS: Hematocrit 23.1 % (33.0-51.0); Hemoglobin 7.6 g/dL (11.5-16.0); Mean Corpuscular HGB 31.3 pg (26.0-34.0); Mean Corpuscular HGB Conc 32.9 g/dL (31.5-36.5); Mean Corpuscular Volume 95 fL (80-100); Mean Platelet Volume 10.1 fL (9.1-12.4); NRBC Auto 1.3 /100 WBC (0.0-0.2); Platelet Count 397 K/mm3 (150-400); RDW Coefficient Variation 15.3 % (11.7-14.2); RDW Standard Deviation 52.9 fL (35.1-46.3); Red Blood Cell Count 2.43 M/mm3 (3.80-5.20); White Blood Cell Count 15.94 K/mm3 (4.00-11.30)
[2024-10-30 03:46] LABS: Vancomycin, Trough 4.5 ug/mL (5.0-10.0)
[2024-10-30 03:53] LABS: BAND PERCENT MAN 8 % (0-8); BASOPHILS PERCENT MAN 0 % (0-2); EOSINOPHILS PERCENT MAN 0 % (0-6); LYMPHOCYTES ABSOLUTE MAN 0.95 K/mm3 (0.84-5.20); LYMPHOCYTES PERCENT MAN 6 % (21-46); METAMYELOCYTE ABSOLUTE MAN 0.47 K/mm3 (0.00-0.00); METAMYELOCYTE PERCENT MAN 3 % (0-0); MONOCYTES ABSOLUTE MAN 0.79 K/mm3 (0.16-1.47); MONOCYTES PERCENT MAN 5 % (4-13); MYELOCYTE ABSOLUTE MAN 0.31 K/mm3 (0.00-0.00); MYELOCYTE PERCENT MAN 2 % (0-0); NEUTROPHILS ABSOLUTE MAN 13.38 K/mm3 (1.96-9.15); SEG NEUTROPHILS PERCENT MAN 76 % (41-73); TOTAL CELLS COUNTED 100
[2024-10-30 04:07] LABS: Albumin, Blood 2.2 g/dL (3.4-5.0); Albumin/Globulin Ratio 0.6 (0.8-1.8); Bilirubin, Total 0.5 mg/dL (0.1-1.0); Bun/Creatinine Ratio 31.2 (12.0-20.0); Calcium, Blood 8.2 mg/dL (8.5-10.1); Creatinine, Blood 0.74 mg/dL (0.40-1.00); Globulin, Blood 3.7 g/dL (2.2-4.0); Potassium, Blood 3.7 mmol/L (3.5-5.5); Total Protein, Blood 5.9 g/dL (6.4-8.2)
[2024-10-30] MEDS ORDERED: HydrALAZINE HCl 20 MG / ML 1ML Vial IV PRN (04:55)
[2024-10-30] MEDS ORDERED: Furosemide 10 MG / ML 2ML Vial IV SCH (10:00)
[2024-10-30] MEDS ORDERED: MetFORMIN HCl 500 mg PO SCH (17:00)
--- NOTE | 2024-10-30 18:05 | NUR ---
SHIFT SUMMARY PT A&OX4, VSS, ON RA, AMB W/ SBA, TOLERATING PO, VOIDING, AND DENIED PAIN. PHYSICAL AND OCCUPATIONAL THERAPY WORKED W/ PT, SEE THERAPY NOTE. NO OTHER ACUTE CHANGES. CALL LIGHT WITHIN REACH AND PT ABLE TO MAKE NEEDS KNOWN.
[2024-10-30] MEDS ORDERED: Losartan Potassium 50 MG Tab PO SCH (20:00)
--- NOTE | 2024-10-31 03:42 | NUR ---
HEAD WAITER SUMMARY: PT A&O X4, MAKES NEEDS KNOWN. NO ACUTE EVENTS T/O SHIFT. VSS. PT 1 PERSON SBA. INDEPENDENT WITH BED MOBILITY. REPORTS DECREASE IN NON PRODUCTIVE COUGH TODAY. REMAINS ON RA. SATS MAINTAINED ABOVE 90%. BED IN LOWEST POSITION. CALL LIGHT IN REACH. CARES CONTINUE ORDERED.
[2024-10-31 04:24] VITALS: BP 172/92
[2024-10-31] MEDS ORDERED: Pantoprazole Sodium 40 MG Tab PO SCH (06:00)
--- NOTE | 2024-10-31 07:14 | NUR ---
PT BP OF 172/[address] RETANA. NO FURTHER ACTION AT THIS TIME. SELENE FOR SBP GREATER THAN 180.
[2024-10-31 07:27] LABS: Hematocrit 25.9 % (33.0-51.0); Hemoglobin 8.4 g/dL (11.5-16.0); Mean Corpuscular HGB Conc 32.4 g/dL (31.5-36.5); Mean Corpuscular Volume 96 fL (80-100); Mean Platelet Volume 9.9 fL (9.1-12.4); NRBC ABSOLUTE 0.09 K/mm3 (0.00-0.02); NRBC Auto 0.6 /100 WBC (0.0-0.2); Platelet Count 454 K/mm3 (150-400); RDW Coefficient Variation 16.3 % (11.7-14.2); RDW Standard Deviation 52.2 fL (35.1-46.3); Red Blood Cell Count 2.71 M/mm3 (3.80-5.20); White Blood Cell Count 14.46 K/mm3 (4.00-11.30)
[2024-10-31 07:49] VITALS: BP 167/85
[2024-10-31 07:52] LABS: Albumin, Blood 2.4 g/dL (3.4-5.0); Albumin/Globulin Ratio 0.6 (0.8-1.8); Bilirubin, Total 0.5 mg/dL (0.1-1.0); Bun/Creatinine Ratio 23.7 (12.0-20.0); Calcium, Blood 8.3 mg/dL (8.5-10.1); Creatinine, Blood 0.76 mg/dL (0.40-1.00); Globulin, Blood 3.7 g/dL (2.2-4.0); Potassium, Blood 3.2 mmol/L (3.5-5.5); Total Protein, Blood 6.1 g/dL (6.4-8.2)
[2024-10-31 08:00] LABS: BAND PERCENT MAN 1 % (0-8); BASOPHILS PERCENT MAN 0 % (0-2); EOSINOPHILS ABSOLUTE MAN 0.28 K/mm3 (0.00-0.68); EOSINOPHILS PERCENT MAN 2 % (0-6); LYMPHOCYTES ABSOLUTE MAN 1.01 K/mm3 (0.84-5.20); LYMPHOCYTES PERCENT MAN 7 % (21-46); METAMYELOCYTE ABSOLUTE MAN 0.86 K/mm3 (0.00-0.00); METAMYELOCYTE PERCENT MAN 6 % (0-0); MONOCYTES ABSOLUTE MAN 0.28 K/mm3 (0.16-1.47); MONOCYTES PERCENT MAN 2 % (4-13); SEG NEUTROPHILS PERCENT MAN 82 % (41-73); TOTAL CELLS COUNTED 100
[2024-10-31 11:48] VITALS: BP 133/74
--- NOTE | 2024-10-31 14:16 | NUR ---
DISCHARGE NOTE PT D/C HOME AT 1413. PT AND PT'S FAMILY PROVIDED W/ VERBAL AND WRITTEN INSTRUCTIONS AND REPORTED UNDERSTANDING. PT A&OX4, VSS, AMB W/ SBA, TOLERATING PO, VOIDING, AND DENIED PAIN. BELONGINGS WERE RETURNED AND PT ESCOURTED OUT VIA W/C BY SENIOR [employer] SYSTEMS ENGINEER.
== END 2024-10-31 14:15 | disposition home health service (06) | DRG 871 ==
LOC: ER 14:07 → PCU 17:21 → ERHOLD 17:21 → PCU 19:42 → MEDS 10-29 16:10
PROVIDERS: Family Medicine; Hospitalist; Student in an Organized Health Care Education/Training Program; ADMIT Family Medicine
PROC: 3E03329 Introduction of Other Anti-infective into Peripheral Vein, Percutaneous Approach (ICD-10-PCS; principal; 2024-10-23)
PROC: 5A0935A Assistance with Respiratory Ventilation, Less than 24 Consecutive Hours, High Flow/Velocity Cannula (ICD-10-PCS; 2024-10-25)
DX: A41.89 Other specified sepsis (principal); B37.1 Pulmonary candidiasis; J96.01 Acute respiratory failure with hypoxia; J10.08 Influenza due to other identified influenza virus with other specified pneumonia; J14 Pneumonia due to Hemophilus influenzae; J12.1 Respiratory syncytial virus pneumonia; R65.20 Severe sepsis without septic shock; J45.909 Unspecified asthma, uncomplicated; I48.91 Unspecified atrial fibrillation; Z96.612 Presence of left artificial shoulder joint; I25.10 Atherosclerotic heart disease of native coronary artery without angina pectoris; E78.5 Hyperlipidemia, unspecified; E11.40 Type 2 diabetes mellitus with diabetic neuropathy, unspecified; D64.9 Anemia, unspecified; K21.9 Gastro-esophageal reflux disease without esophagitis; G47.33 Obstructive sleep apnea (adult) (pediatric); A60.00 Herpesviral infection of urogenital system, unspecified; R91.8 Other nonspecific abnormal finding of lung field; Z88.8 Allergy status to other drugs, medicaments and biological substances; Z79.51 Long term (current) use of inhaled steroids; Z79.899 Other long term (current) drug therapy; Z88.0 Allergy status to penicillin; Z91.048 Other nonmedicinal substance allergy status; Z79.01 Long term (current) use of anticoagulants; Z79.82 Long term (current) use of aspirin; Z95.2 Presence of prosthetic heart valve; Z87.59 Personal history of other complications of pregnancy, childbirth and the puerperium; Z90.10 Acquired absence of unspecified breast and nipple; Z90.721 Acquired absence of ovaries, unilateral; Z90.49 Acquired absence of other specified parts of digestive tract; Z87.19 Personal history of other diseases of the digestive system; Z87.891 Personal history of nicotine dependence; Z87.81 Personal history of (healed) traumatic fracture; Z79.84 Long term (current) use of oral hypoglycemic drugs; Z79.891 Long term (current) use of opiate analgesic; Z98.51 Tubal ligation status; Z90.89 Acquired absence of other organs; Z88.1 Allergy status to other antibiotic agents; Z99.89 Dependence on other enabling machines and devices; Z95.5 Presence of coronary angioplasty implant and graft
CPT/HCPCS: 0202U; 36415; 71045; 71046; 80053; 80202; 82803; 82947; 83605; 83735; 83880; 84100; 84145; 84484; 85025; 86850; 86900; 86901; 86923; 87040; 87070; 87077; 87205; 87449; 93005; 93010; 93306; 94640; 94660; 94664; 94762; 96360; 97162; 97165; 97530; 99285-25; A9270; J0360; J0456; J0692; J0696; J1940; J2405; J2470; J2919; J3370; J3475; J3480; J7030; J7040; J7050; J7060; J7120

== ENCOUNTER → 2024-10-23 | Outpatient (CLI) | payer MEDICARE, OTHER ==
[~2024-10-23] MED LIST changes: +1/2 NS 250ml250 ML PO; -ACET325 PO; +ACET500 PO; +ALBU2.5V5 INH; +ALBU3IS INH; +ALBU90OI INH; +AMIODARONE HCL200 M1 PO; +ASAMANEX INH; +ASMANEX INH; +ATORVASTATIN CA80 M1 PO; +Amiodarone HCl200 MG PO; +DESV50 PO; +DESVENLAFAXINE50 MG PO; +ELIQUIS5 M2 PO; +FURO20 PO; +GABA300; +Glucophage 500 mg PO; +Hair, Skin & N1 EACH PO; +LOSARTAN POTAS100 M1 PO; +MELATONIN5 M1 PO; +METF500 PO; +METO25ER PO; +MOME220I INH; -Multiple Vitam1 EAC1 PO; +OMEP20ER PO; -OMEPRAZOLE MAGN20 MG PO; +ST. JOSEPH ASPI81 MG PO; +VALACYCLOVIR 1 GM PO
[2024-10-23 11:51] LABS: Hematocrit 31.9 % (33.0-51.0); Hemoglobin 10.5 g/dL (11.5-16.0); Mean Corpuscular HGB 30.5 pg (26.0-34.0); Mean Corpuscular HGB Conc 32.9 g/dL (31.5-36.5); Mean Corpuscular Volume 93 fL (80-100); Mean Platelet Volume 9.1 fL (9.1-12.4); Platelet Count 282 K/mm3 (150-400); RDW Standard Deviation 47.3 fL (35.1-46.3); Red Blood Cell Count 3.44 M/mm3 (3.80-5.20); White Blood Cell Count 14.92 K/mm3 (4.00-11.30)
[2024-10-23 12:04] LABS: Albumin, Blood 2.8 g/dL (3.4-5.0); Albumin/Globulin Ratio 0.6 (0.8-1.8); Bun/Creatinine Ratio 24.6 (12.0-20.0); Calcium, Blood 8.7 mg/dL (8.5-10.1); Creatinine, Blood 1.38 mg/dL (0.40-1.00); Potassium, Blood 3.3 mmol/L (3.5-5.5); Total Protein, Blood 7.8 g/dL (6.4-8.2)
[2024-10-23 12:43] LABS: BAND PERCENT MAN 11 % (0-8); LYMPHOCYTES ABSOLUTE MAN 0.74 K/mm3 (0.84-5.20); LYMPHOCYTES PERCENT MAN 5 % (21-46); MONOCYTES ABSOLUTE MAN 1.04 K/mm3 (0.16-1.47); MONOCYTES PERCENT MAN 7 % (4-13); NEUTROPHILS ABSOLUTE MAN 13.12 K/mm3 (1.96-9.15); SEG NEUTROPHILS PERCENT MAN 77 % (41-73)
[2024-10-23 19:01] LABS: Adenovirus Not Detected (NOT DETECT); Bordetella pertussis Not Detected (NOT DETECT); Chlamydophila pneumoniae Not Detected (NOT DETECT); Coronavirus 229E Not Detected (NOT DETECT); Coronavirus HKU1 Not Detected (NOT DETECT); Coronavirus NL63 Not Detected (NOT DETECT); Coronavirus OC43 Not Detected (NOT DETECT); Human Metapneumovirus Not Detected (NOT DETECT); Human Rhinovirus/Enterovirus Detected (NOT DETECT); Influenza A/2009-H1 Not Detected (NOT DETECT); Influenza A/H1 Not Detected (NOT DETECT); Influenza A/H3 Not Detected (NOT DETECT); Influenza B Not Detected (NOT DETECT); Mycoplasma pneumoniae Not Detected (NOT DETECT); Parainfluenza Virus 1 Not Detected (NOT DETECT); Parainfluenza Virus 2 Not Detected (NOT DETECT); Parainfluenza Virus 3 Not Detected (NOT DETECT); Parainfluenza Virus 4 Not Detected (NOT DETECT); Respiratory Syncytial Virus Not Detected (NOT DETECT); SARS-Cov-2 (COVID-19), BioFire Not Detected (NOT DETECT)
== END ==
LOC: LAB 11:48 → LAB SHORT 11:48
PROVIDERS: Physician Assistant Medical
DX: J18.9 Pneumonia, unspecified organism (principal); R06.00 Dyspnea, unspecified
CPT/HCPCS: 0202U; 80053; 83605; 85025